=== PATIENT | female | born 1980 | race Caucasian/White ===

== ENCOUNTER 2023-08-17 06:37 | Emergency (ER) | payer OTHER, SELFPAY ==
[2023-08-17 06:57] VITALS: BP 134/87; PULSE 69; RESP 16; TEMP 36.4; O2SAT 100; BMI 18.9
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
[2023-08-17] MEDS: Morphine Sulfate Immed Release 15 MG TABLET PO (08:36)
[2023-08-17] MEDS: Bacitracin Oint 0.9 GM PACKET 1 APPL TOPICAL (08:37)
[2023-08-17 08:41] VITALS: BP 110/80; PULSE 85; RESP 18; TEMP 36.8; O2SAT 99
[2023-08-17 08:42] VITALS: BP 110/80; PULSE 80; RESP 18; TEMP 36.7; O2SAT 98
== END 2023-08-17 08:44 | disposition home or self-care (01) ==
PROVIDERS: Emergency Provider Emergency Medicine
DX: T25.221A Burn of second degree of right foot, initial encounter (principal); T25.222A Burn of second degree of left foot, initial encounter; T31.0 Burns involving less than 10% of body surface; M79.672 Pain in left foot; M79.671 Pain in right foot; X12.XXXA Contact with other hot fluids, initial encounter; Y93.9 Activity, unspecified; Y92.9 Unspecified place or not applicable; Y99.8 Other external cause status
CPT/HCPCS: 16025; 99284

== ENCOUNTER 2023-08-20 06:21 | Emergency (ER) | payer OTHER, SELFPAY ==
[2023-08-20 07:05] VITALS: BP 116/74; PULSE 70; RESP 16; TEMP 36.2; O2SAT 100; BMI 18.9
== END 2023-08-20 11:19 | disposition left against medical advice (07) ==
PROVIDERS: Emergency Provider Emergency Medicine
DX: M79.672 Pain in left foot (principal); M79.671 Pain in right foot
CPT/HCPCS: 99281

== ENCOUNTER 2023-08-27 | Outpatient (RCR) | payer OTHER, SELFPAY | END 2023-10-12 09:39 | disposition home or self-care (01) | LOC: HO.WCC | PROVIDERS: Visit Provider Physician Assistant | DX: T25.222A Burn of second degree of left foot, initial encounter (principal); T25.221A Burn of second degree of right foot, initial encounter; T31.0 Burns involving less than 10% of body surface; X10.0XXA Contact with hot drinks, initial encounter; Y93.9 Activity, unspecified; Y92.9 Unspecified place or not applicable; Y99.9 Unspecified external cause status | CPT/HCPCS: 16020; 99212 ==